=== PATIENT | male | born 1990 | race Two or more races ===

== ENCOUNTER → 2016-06-20 | Outpatient (CLI) | payer OTHER | LOC: CIMAGING 07:08 | PROVIDERS: ATTEND Physician Assistant | DX: K76.0 Fatty (change of) liver, not elsewhere classified (principal) | CPT/HCPCS: 76705-PO ==

== ENCOUNTER → 2018-05-07 | Outpatient (CLI) | payer OTHER | LOC: CIMAGING 15:44 | PROVIDERS: ATTEND Internal Medicine | DX: M54.2 Cervicalgia (principal) | CPT/HCPCS: 72050-PO ==